=== PATIENT | female | born 2000 | race Caucasian/White ===

== ENCOUNTER 2024-04-30 15:34 | Outpatient (CLI) | payer OTHER ==
[2024-04-30 15:45] VITALS: BP 128/90
[2024-04-30 16:53] LABS: BASOPHILS % (AUTO) 0.4 %; EOSINOPHILS # (AUTO) 0.2 10^3/uL (0.0-0.7); EOSINOPHILS % (AUTO) 2.9 %; HCT - HEMATOCRIT 38.8 % (37.0-47.0); HGB - HEMOGLOBIN 12.9 g/dL (12.0-16.0); LYMPHOCYTES # (AUTO) 1.1 10^3/uL (1.5-3.5); LYMPHOCYTES % (AUTO) 13.5 %; MEAN CORPUSCULAR HEMOGLOBIN 27.6 pg (27.0-31.0); MEAN CORPUSCULAR HGB CONC 33.2 g/dL (32.0-36.0); MEAN CORPUSCULAR VOLUME 82.9 fL (81.0-99.0); MEAN PLATELET VOLUME 11.2 fL (7.9-10.8); MONOCYTES # (AUTO) 0.5 10^3/uL (0.0-1.0); MONOCYTES % (AUTO) 5.4 %; NEUTROPHILS # (AUTO) 6.4 10^3/uL (1.5-6.6); NEUTROPHILS % (AUTO) 77.1 %; PLT - PLATELET COUNT 172 10^3/uL (130-450); RED BLOOD COUNT 4.68 10^6/uL (4.20-5.40); RED CELL DISTRIBUTION WIDTH 12.1 % (12.0-15.0); WHITE BLOOD COUNT 8.3 x10^3/uL (4.8-10.8)
--- NOTE | 2024-04-30 17:08 | PROVIDER PROGRESS NOTE ---
- HPI Chief Complaint: Decreased movement Current : Vital Signs Temperature 98.2 F 04/30/24 15:43 Heart Rate 97 04/30/24 15:43 Respiratory Rate 16 04/30/24 15:43 Blood Pressure 128/90 H 04/30/24 15:43 - Procedures OB Procedure Performed: NST Diagnosis/Indication for NST: Decreased movement Service Date of procedure: 04/30/24 (Read 04/30/24) - Plan Plan: Patient is a 24-year-old G1, P0 at 31 weeks gestation presenting today for decreased movement. She gets care in [place] at [facility]. She said for the last several days she has had increasingly less movement, although when she was put on monitoring, she did feel baby kick and was surprised as she has not had one in a while. She is also complained of intermittent right upper quadrant pain, although this has been more frequent and longer lasting the last several days. This happened early in but then resolved. She did talk about this with her primary OB provider on Monday and they yaya labs, but she has not heard back from them. She denies headache, changes in vision. She says she gets tired when doing activities, but no shortness of breath. No relation to food. No constipation or diarrhea, nausea, vomiting. No dysuria. Says she has seen her mom and dad with gallbladder issues and having them removed and says she does not feel like the pain she saw them during these episodes. Physical Exam Constitutional: alert, no acute distress, well hydrated, well developed, well nourished, appropriate dress. Cardiovascular: Regular rate and rhythm. Respiratory: no respiratory distress. Abdomen: Gravid, nondistended. Mild right upper quadrant pain, no guarding or rebound. Back: No CVA tenderness Psych: affect and mood appropriate, normal interaction, good eye contact. FHT: 145 bpm baseline, moderate variability, accelerations present, no decelerations. Reactive NST [place]: Quiescent Labs: Creatinine: 0.6, AST/ALT: 10/8, platelets: 172, protein/creatinine ratio: 0.1 Assessment and plan 1. Right upper quadrant pain -Low concern for preeclampsia. Uncomfortable, but not acutely painful in the right upper quadrant. Labs not concerning for preeclampsia and blood pressure is not severe -Discussed right upper quadrant ultrasound and this is best after fasting for 8 hours. She declines staying for this as the pain is not that severe. -Should return if worsening pain. Can follow-up for outpatient right upper ultrasound if desired. No signs of acute cholecystitis that would warrant urgent intervention. 2. Decreased movement -Reactive NST -Discussed movement expectations 3. Elevated blood pressure -one BP of 128/90 followed by several in the 110s-120s/70s
[2024-04-30 17:13] LABS: ALBUMIN 3.5 g/dL (3.2-5.5); ALBUMIN/GLOBULIN RATIO 1.2 (1.0-2.2); BILIRUBIN,TOTAL 0.4 mg/dL (0.2-1.0); CALCIUM 9.3 mg/dL (8.5-10.3); CREATININE 0.6 mg/dL (0.6-1.3); POTASSIUM 3.7 mmol/L (3.5-4.5); TOTAL PROTEIN 6.5 g/dL (6.4-8.9)
[2024-04-30 17:30] LABS: CREATININE,URINE 178.8 mg/dL; PROTEIN/CREATININE RATIO,URINE 0.1 (<=0.2)
== END 2024-04-30 18:00 | disposition home or self-care (01) ==
LOC: WFO 15:34 → FBP 15:35 → WFO 18:00
PROVIDERS: ATTEND Obstetrics & Gynecology
DX: O36.8130 Decreased fetal movements, third trimester, not applicable or unspecified (principal); O99.891 Other specified diseases and conditions complicating pregnancy; R03.0 Elevated blood-pressure reading, without diagnosis of hypertension; R10.11 Right upper quadrant pain; Z3A.31 31 weeks gestation of pregnancy
CPT/HCPCS: 36415; 59025; 80053; 82570; 84156; 85025; 99215

== ENCOUNTER 2024-05-27 02:02 | Outpatient (CLI) | payer OTHER ==
[2024-05-27 02:45] VITALS: O2SAT 100
[2024-05-27 03:38] LABS: BASOPHILS % (AUTO) 0.3 %; EOSINOPHILS # (AUTO) 0.4 10^3/uL (0.0-0.7); EOSINOPHILS % (AUTO) 3.9 %; HGB - HEMOGLOBIN 11.5 g/dL (12.0-16.0); MEAN CORPUSCULAR HEMOGLOBIN 26.4 pg (27.0-31.0); MEAN CORPUSCULAR HGB CONC 31.9 g/dL (32.0-36.0); MEAN CORPUSCULAR VOLUME 82.6 fL (81.0-99.0); MEAN PLATELET VOLUME 12.2 fL (7.9-10.8); MONOCYTES # (AUTO) 0.7 10^3/uL (0.0-1.0); MONOCYTES % (AUTO) 7.4 %; NEUTROPHILS % (AUTO) 65.5 %; PLT - PLATELET COUNT 160 10^3/uL (130-450); RED BLOOD COUNT 4.36 10^6/uL (4.20-5.40); RED CELL DISTRIBUTION WIDTH 12.3 % (12.0-15.0); WHITE BLOOD COUNT 9.2 x10^3/uL (4.8-10.8)
[2024-05-27 03:46] LABS: CREATININE,URINE 45.1 mg/dL; PROTEIN/CREATININE RATIO,URINE 0.2 (<=0.2)
--- NOTE | 2024-05-27 03:50 | PROVIDER PROGRESS NOTE ---
- HPI Chief Complaint: Pain, non-labor Current : Vital Signs Temperature 98.1 F 05/27/24 02:25 Heart Rate 76 05/27/24 02:25 Respiratory Rate 20 05/27/24 02:25 Blood Pressure 139/90 H 05/27/24 02:25 O2 Saturation 100 05/27/24 02:25 Temperature 98.1 F 05/27/24 02:25 Heart Rate 76 05/27/24 02:25 Respiratory Rate 20 05/27/24 02:25 Blood Pressure 139/90 H 05/27/24 02:25 O2 Saturation 100 05/27/24 02:25 If not protocol: Oxygen Flow, liters/minute - Procedures OB Procedure Performed: NST NST Procedure: NST Procedure Start Time 15:38 Stop Time 16:18 Service Date of procedure: 05/27/24 (Read 05/27/24) - Plan Plan: HPI: Patient is a 24-year-old G1, P0 at 36 weeks 2 days gestation presenting to triage for abdominal pain with movement. She has good movement, no leaking, no vaginal bleeding. She denies headache, changes in vision. She says for 24 hours, she has had significant, 8/10 stabbing pain in her upper belly that only happens with movement. She says this is most prominent in the morning. Pain 0/10 without movement. No fever, chills, nausea, vomiting. Baby does calm down if her partner rests hand on her abdomen. Otherwise she cannot anything to decrease the pain. Has tried warm baths, but this makes fetus more active. No history of elevated blood pressures, but mildly elevated today. Had triage visit last month with BP 120s/90s then normal Past medical history Ulcerative proctitis Physical Exam Constitutional: alert, no acute distress, well hydrated, well developed, well nourished, appropriate dress. Cardiovascular: Regular rate and rhythm. Respiratory: no respiratory distress. Abdomen: Gravid, nondistended, nontender, no guarding. Psych: affect and mood appropriate, normal interaction, good eye contact. FHT: 130 beats per baseline, moderate variability, accelerations present, no decelerations. Reactive NST [place]: Quiescent Labs: Stable 160, AST/ALT 11/11, protein creatinine ratio 0.2. Assessment and plan Abdominal pain -Normal exam today. Appears only related to movement and no concerning findings. -Discussed pain management techniques. Elevated blood pressures -Multiple BPs in the 140s/90s. -Labs not concerning for preeclampsia. -Discussed possible gestational hypertension. Should discuss with primary OB as this could change delivery timing.
[2024-05-27 03:54] LABS: ALBUMIN 3.4 g/dL (3.2-5.5); ALBUMIN/GLOBULIN RATIO 1.1 (1.0-2.2); BILIRUBIN,TOTAL 0.3 mg/dL (0.2-1.0); CALCIUM 9.1 mg/dL (8.5-10.3); CREATININE 0.7 mg/dL (0.6-1.3); POTASSIUM 3.9 mmol/L (3.5-4.5); TOTAL PROTEIN 6.4 g/dL (6.4-8.9)
[2024-05-27 04:49] VITALS: BP 132/85
== END 2024-05-27 04:15 | disposition home or self-care (01) ==
LOC: WFO 02:02 → FBP 02:04 → WFO 04:15
PROVIDERS: ATTEND Obstetrics & Gynecology
DX: O99.891 Other specified diseases and conditions complicating pregnancy (principal); R10.10 Upper abdominal pain, unspecified
CPT/HCPCS: 36415; 59025; 80053; 82570; 84156; 85025; 99215

== ENCOUNTER 2024-06-06 22:45 | Inpatient (IN) | payer OTHER ==
[2024-06-06 23:32] LABS: BASOPHILS % (AUTO) 0.5 %; EOSINOPHILS # (AUTO) 0.3 10^3/uL (0.0-0.7); EOSINOPHILS % (AUTO) 3.3 %; HCT - HEMATOCRIT 34.9 % (37.0-47.0); HGB - HEMOGLOBIN 11.5 g/dL (12.0-16.0); LYMPHOCYTES # (AUTO) 1.6 10^3/uL (1.5-3.5); MEAN CORPUSCULAR HEMOGLOBIN 26.7 pg (27.0-31.0); MEAN PLATELET VOLUME 12.3 fL (7.9-10.8); MONOCYTES # (AUTO) 0.6 10^3/uL (0.0-1.0); MONOCYTES % (AUTO) 7.1 %; NEUTROPHILS # (AUTO) 6.3 10^3/uL (1.5-6.6); NEUTROPHILS % (AUTO) 70.5 %; PLT - PLATELET COUNT 151 10^3/uL (130-450); RED BLOOD COUNT 4.31 10^6/uL (4.20-5.40); RED CELL DISTRIBUTION WIDTH 12.3 % (12.0-15.0); WHITE BLOOD COUNT 8.9 x10^3/uL (4.8-10.8)
[2024-06-06 23:50] LABS: ALBUMIN 3.2 g/dL (3.2-5.5); BILIRUBIN,TOTAL 0.3 mg/dL (0.2-1.0); CALCIUM 9.4 mg/dL (8.5-10.3); CREATININE 0.7 mg/dL (0.6-1.3); POTASSIUM 4.1 mmol/L (3.5-4.5); TOTAL PROTEIN 6.3 g/dL (6.4-8.9)
--- NOTE | 2024-06-07 01:30 | HISTORY & PHYSICAL EXAMINATION ---
Admit History - Other Maternal History Other Maternal History: HPI: Mihir Sharma is a 24 yo at 37w5d by 16wk US who is admitted with preeclampsia without severe features for IOL. Mihir presented to triage with elevated blood pressures at home and pr:cr .37 on outside labs collected on 06/06. She has received care at [facility] in [place]. She reports several mild range BPs over the last month and had been monitoring her BPs twice daily at home over the last week with BPs ranging from 132/94- 151/94. She was seen in triage here on 05/27 also with mild range BP. She reports mild EM with vision changes earlier in the evening, have since resolved. Reports vision changes as "like someone had shined a flashlight in her eye". Denies abdominal pain, ctx, lof, vb. + FM. Denies CP, SOB. Reports increase in LE swelling usually resolves with elevated her feet but not today. She does not have a specific plan. Does desire delayed cord clamping if possible and epidural for pain management. course: - She has received care at [facility] in [place]. - Reports uncomplicated care other than recently elevated BPs. - She was unsure of her BRIGIDO, reports being told multiple dates. record reviewed. Approximate LMP at her first visit was 09/22/23 with an BRIGIDO of 06/28/24. This would make her 37w0d today. First US performed on 01/11, measuring 16w4d, BRIGIDO by US 06/23/24. This BRIGIDO would make her 37w5d today. labs: - baseline pr:cr 0.11 on 02/14 - urine culture 04/26 neg - urine culture 12/20 mixed taylor - B+, antibody neg - Rubella immune - early A1C 5.0 - NIPT neg - RPR NR 12/20 - GC/CT neg/neg - HBsAg neg - Anti-HCV neg - HIV NR - TSH 2.04 - GBS collected on 06/05, pending - PAP 12/20/23 ASCUS, HPV neg - Glucola - unable to tolerate, was waiting to do Fresh test. - Anatomy US reported to be normal, report not available Medical Hx: - Ulcerative proctitis - has not been a problem during . Last saw GI doctor about 1 year ago with colonoscopy, told them she was trying for at that time. Was told that vaginal delivery should be OK. - Anxiety/depression - no meds currently. Has used trazadone and buproprion in the past to help with sleep. 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 Was not tracking periods. - Ho chlamydia in 2019. Denies h/o HSV in herself/partner. Social Hx: No current alcohol/tobacco/drug use. Family history: non-contributory Allergies - vinegar - "lip swelling and throat closes up" Meds: PNV, baby aspirin PE: - See vitals below Gen: NAD Chest: non labored respirations Abd: gravid, non tender, EFW 2800-3000g Ext: 2+ edema SVE: 1/50/-2, moderate, mid position Bedside US: cephalic presentation confirmed monitoring: FHTs: 130 bpm baseline, + accel, - decel, mod variability [place]: 2-6 min, she does not feel them Labs: CBC, CMP reviewed. A/P: 24 yo at 37w5d with: - Preeclampsia without severe features - GBS pending - Rh positive - Rubella immune - Ulcerative proctitis, was told no contraindication to prior to - Anxiety/depression, not on medication - We discussed elevated blood pressures and pr:cr ratio consistent with preeclampsia with recommendation for IOL at 37wks. She does agree to proceed with IOL, consents were reviewed and signed. Currently asymptomatic, will monitor closely for symptoms and severe range BPs. Single initial severe BP on presentation, remaining BPs have been normal to mild range. We did discuss possibility of magnesium sulfate for seizure prophylaxis in the setting of severe features and possible treatment with antihypertensives. Discussed may need extended monitoring in the setting of difficult to control blood pressures. - Discussed options for IOL. Would like to avoid cervical ripening balloon if possible. Plan to proceed with misoprostol 25mcg q 4 hrs, prefers vaginal route. Discussed possible augmentation with pitocin/AROM depending on labor progress. - GBS pending, RN's will call tomorrow to check on status of result. Given she is term with no h/o GBS bacteruria, GBS prophylaxis not indicated. Discussed with Jovanni and she is OK with non treatment at this time. - Pain management per patient request Sandy Herzog MD - HPI Current EDU 06/22/24 Gestation 37 Weeks and 5 Days 1 Para 0 Vital Signs Temperature 98.4 F 06/06/24 22:52 Heart Rate 83 06/06/24 22:52 Respiratory Rate 16 06/06/24 22:52 Blood Pressure 163/100 H 06/06/24 22:52 Temperature 98.4 F 06/06/24 22:52 Heart Rate 83 06/06/24 22:52 Respiratory Rate 16 06/06/24 22:52 Blood Pressure 163/100 H 06/06/24 22:52 O2 Saturation If not protocol: Oxygen Flow, liters/minute - NST Procedure NST Procedure Start Date 06/06/24 Start Time 22:54 Stop Time 23:34 Vibroacoustic Stimulation Used No Patient States Movement Yes Meds/Allgy - Allergies Allergies/Adverse Reactions: Allergies Allergy/AdvReac Type Severity Reaction Status Date / Time cider vinegar AdvReac Hives Verified 05/27/24 04:50 Physical - Abdominal Exam Vital Signs: Temp Pulse Resp BP Pulse Ox O2 Flow Rate 98.4 F 83 16 163/100 H 06/06/24 22:52 06/06/24 22:52 06/06/24 22:52 06/06/24 22:52 Plan for Labor - Plan For Labor I expect patient to be DC'd or transferred within 96 hours.: Yes
--- NOTE | 2024-06-07 02:18 | HISTORY & PHYSICAL EXAMINATION ---
Admit History - Other Maternal History Other Maternal History: HPI: * is a * G*P* at *weeks *days presenting with * course: *Copy pregnacy flowsheet* PMHx* PSHx * OB Hx * Social Hx * Fam Hx* Allergies * Meds: PE: * SVE: * Bedside US * NST: * Labs: * A/P: * is a * G*P* at * who presents for *: - * - * - GBS * - Plan for *. IOL consent reviewed and signed *. - Pain management per patient request *. - * - HPI Current [facility] 06/22/24 Gestation 37 Weeks and 5 Days 1 Para 0 Vital Signs Temperature 98.4 F 06/06/24 22:52 Heart Rate 83 06/06/24 22:52 Respiratory Rate 16 06/06/24 22:52 Blood Pressure 163/100 H 06/06/24 22:52 Temperature 98.4 F 06/06/24 22:52 Heart Rate 83 06/06/24 22:52 Respiratory Rate 16 06/06/24 22:52 Blood Pressure 163/100 H 06/06/24 22:52 O2 Saturation If not protocol: Oxygen Flow, liters/minute - NST Procedure NST Procedure Start Date 06/06/24 Start Time 22:54 Stop Time 23:34 Vibroacoustic Stimulation Used No Patient States Movement Yes Meds/Allgy - Allergies Allergies/Adverse Reactions: Allergies Allergy/AdvReac Type Severity Reaction Status Date / Time cider vinegar AdvReac Hives Verified 05/27/24 04:50 Physical - Abdominal Exam Vital Signs: Temp Pulse Resp BP Pulse Ox O2 Flow Rate 98.4 F 83 16 163/100 H 06/06/24 22:52 06/06/24 22:52 06/06/24 22:52 06/06/24 22:52
[2024-06-07] MEDS ORDERED: ONDANSETRON 4 MG/2 ML VIAL IVP PRN ×3 (02:31→19:43)
[2024-06-07] MEDS ORDERED: miSOPROStoL 200 MCG TABLET BC PRN ×2 (02:31)
[2024-06-07] MEDS ORDERED: diphenhydrAMINE INJ 50 MG/ML VIAL IVP PRN ×2 (02:31→19:43)
[2024-06-07] MEDS ORDERED: ACETAMINOPHEN 500 MG TABLET PO PRN (02:31)
[2024-06-07] MEDS ORDERED: CALCIUM CARBONATE CHEW 500 MG TABLET PO PRN ×2 (02:31)
[2024-06-07] MEDS ORDERED: ONDANSETRON ODT 4 MG TABLET PO PRN ×2 (02:31)
[2024-06-07] MEDS ORDERED: TRANEXAMIC ACID IN NACL 1,000 MG/100 ML BAG IV PRN (02:31)
[2024-06-07] MEDS ORDERED: OXYTOCIN 10 UNIT/ML VIAL IM PRN ×2 (02:31)
[2024-06-07] MEDS ORDERED: LACTATED RINGERS 1,000 ML IV PRN (02:31)
[2024-06-07] MEDS ORDERED: miSOPROStoL 200 MCG TABLET PR PRN ×2 (02:31)
[2024-06-07] MEDS ORDERED: TERBUTALINE 1 MG/ML VIAL SUBQ PRN ×2 (02:31)
[2024-06-07] MEDS ORDERED: NIFEdipine 10 MG CAPSULE PO PRN ×2 (02:31)
[2024-06-07] MEDS ORDERED: METHYLERGONOVINE 0.2 MG/ML VIAL IM PRN (02:31)
[2024-06-07] MEDS ORDERED: SODIUM CHLORIDE FLUSH 0.9% 10 ML SYRINGE IVP PRN ×2 (02:31)
[2024-06-07] MEDS ORDERED: CARBOPROST TROMETHAMINE 250 MCG/ML VIAL IM PRN ×2 (02:31)
[2024-06-07] MEDS ORDERED: AMPICILLIN 2 GM in SODIUM CHLORIDE 0.9% MINIBAG 100 ML IV ONE (02:31)
[2024-06-07] MEDS ORDERED: OXYTOCIN/SODIUM CHLORIDE 500 ML IV PRN (02:31)
[2024-06-07] MEDS ORDERED: LABETALOL 20 MG/4 ML SYRINGE IVP PRN ×6 (02:31)
[2024-06-07] MEDS ORDERED: fentaNYL 100 MCG/2 ML VIAL IVP PRN ×2 (02:31)
[2024-06-07] MEDS ORDERED: hydrALAZINE INJ 20 MG/ML VIAL IVP PRN ×4 (02:31)
[2024-06-07] MEDS ORDERED: lidocaine 1% 20 ML MDV ID PRN ×2 (02:31)
[2024-06-07] MEDS ORDERED: SODIUM CHLORIDE FLUSH 0.9% 10 ML SYRINGE IVP SCH ×2 (03:00)
[2024-06-07] MEDS: miSOPROStoL 100 MCG TABLET VG SCH (03:50)
[2024-06-07] MEDS ORDERED: AMPICILLIN 1 GM in SODIUM CHLORIDE 0.9% MINIBAG 100 ML IV SCH (06:00)
--- NOTE | 2024-06-07 15:38 | PHARMACY PROGRESS NOTE ---
- Best Possible Medication History Admit Date and Time: 06/07/24 0231 Processed by: Pharmacy Medications reviewed in ED?: No Medication History completed: Yes Patient Interview: Pt unable to participate Secondary Source(s): Physician records, Insurance records As the person ultimately responsible for medication therapy, providers are able to order a medication from an existing home medication list in [facility] via the "Reconcile Routine" prior to Confirmation of that medication by operations support professionals. Such practice is discouraged except when the physician, in their clinical judgment, deems that a medical need exists for a medication without regard to previous use.
[2024-06-07] MEDS: LACTATED RINGERS 1,000 ML IV PRN (18:01)
[2024-06-07 19:15] LABS: BASOPHILS % (AUTO) 0.3 %; EOSINOPHILS # (AUTO) 0.2 10^3/uL (0.0-0.7); EOSINOPHILS % (AUTO) 1.9 %; HCT - HEMATOCRIT 39.3 % (37.0-47.0); HGB - HEMOGLOBIN 12.5 g/dL (12.0-16.0); LYMPHOCYTES # (AUTO) 1.3 10^3/uL (1.5-3.5); LYMPHOCYTES % (AUTO) 10.8 %; MEAN CORPUSCULAR HEMOGLOBIN 25.7 pg (27.0-31.0); MEAN CORPUSCULAR HGB CONC 31.8 g/dL (32.0-36.0); MEAN CORPUSCULAR VOLUME 80.9 fL (81.0-99.0); MEAN PLATELET VOLUME 12.1 fL (7.9-10.8); MONOCYTES # (AUTO) 0.7 10^3/uL (0.0-1.0); MONOCYTES % (AUTO) 5.6 %; NEUTROPHILS # (AUTO) 9.6 10^3/uL (1.5-6.6); NEUTROPHILS % (AUTO) 80.9 %; PLT - PLATELET COUNT 166 10^3/uL (130-450); RED BLOOD COUNT 4.86 10^6/uL (4.20-5.40); RED CELL DISTRIBUTION WIDTH 12.5 % (12.0-15.0); WHITE BLOOD COUNT 11.9 x10^3/uL (4.8-10.8)
[2024-06-07 19:30] LABS: URIC ACID 5.3 mg/dL (2.3-6.6)
[2024-06-07] MEDS ORDERED: METOCLOPRAMIDE 10 MG/2 ML VIAL IVP PRN (19:43)
[2024-06-07] MEDS ORDERED: NALBUPHINE 10 MG/ML AMP IVP PRN (19:43)
[2024-06-07] MEDS ORDERED: NALOXONE 0.4 MG/ML VIAL IVP PRN (19:43)
[2024-06-07] MEDS ORDERED: ROPIVACAINE 0.2% 200 MG/100 ML BAG EP PRN (19:43)
[2024-06-07] MEDS ORDERED: ePHEDrine 50 MG/ML VIAL IVP PRN (19:43)
--- NOTE | 2024-06-07 19:43 | ANESTHESIA ---
Pre-Anesthesia VS, & Labs - Diagnosis labor pain - Procedure labor epidural Vital Signs: Temp Pulse Resp BP Pulse Ox O2 Flow Rate 36.7 C 83 16 138/84 H 06/07/24 04:03 06/07/24 04:03 06/07/24 04:03 06/07/24 04:03 Height: 5 ft 9 in Weight (kg): 104.78 kg Body Mass Index: 34.1 BMI Classification: Obese - NPO Other - Is Patient ?: Yes - Lab Results Current Lab Results: Laboratory Tests 06/07/24 19:11: Lactate Dehydrogenase 156 06/07/24 19:11: Uric Acid 5.3 06/07/24 19:11: WBC 11.9 H, RBC 4.86, Hgb 12.5, Hct 39.3, MCV 80.9 L, MCH 25.7 L , MCHC 31.8 L, RDW 12.5, Plt Count 166, MPV 12.1 H, Neut # (Auto) 9.6 H, Lymph # (Auto) 1.3 L, [place] # (Auto) 0.7, Eos # (Auto) 0.2, Baso # (Auto) 0.0, Absolute Nucleated RBC 0.00, Nucleated RBC % 0.0 06/07/24 07:30: Blood Type Recheck B POSITIVE 06/07/24 03:15: Blood Type B POSITIVE, Antibody Screen NEGATIVE 06/06/24 23:27: Sodium 134 L, Potassium 4.1, Chloride 104, Carbon Dioxide 23, Anion Gap 7.0, BUN 10, Creatinine 0.7, Estimated GFR (MDRD) 102, Glucose 82, Calcium 9.4, Total Bilirubin 0.3, AST 10, ALT 9 L, Alkaline Phosphatase 112, Total Protein 6.3 L, Albumin 3.2, Globulin 3.1, Albumin/Globulin Ratio 1.0 06/06/24 23:27: WBC 8.9, RBC 4.31, Hgb 11.5 L, Hct 34.9 L, MCV 81.0, MCH 26.7 L, MCHC 33.0, RDW 12.3, Plt Count 151, MPV 12.3 H, Neut # (Auto) 6.3, Lymph # (Auto) 1.6, [place] # (Auto) 0.6, Eos # (Auto) 0.3, Baso # (Auto) 0.0, Absolute Nucleated RBC 0.00, Nucleated RBC % 0.0 Fish Bones: 06/07/24 19:11 06/06/24 23:27 Home Medications and Allergies Home Medications: Ambulatory Orders Aspirin [Aspirin EC] 81 mg PO DAILY 06/07/24 No122/Iron/Folic Acid [ Multi Tablet] 1 each PO DAILY 06/07/24 Active Medications Acetaminophen (Acetaminophen 500 Mg Tablet) 1,000 mg PO Q8HR PRN PRN Reason: Mild Pain or Fever>38C(100.4F) Calcium Carbonate/Glycine (Calcium Carbonate Chew 500 Mg Tablet) 1,000 mg PO Q6HR PRN PRN Reason: Heartburn Carboprost Tromethamine (Carboprost Tromethamine 250 Mcg/Ml Vial) 250 mcg IM .ONCE PRN PRN Reason: Hemorrhage Diphenhydramine HCl (Diphenhydramine Inj 50 Mg/Ml Vial) 25 mg IVP Q6H PRN PRN Reason: Allergy Symptoms Fentanyl (Fentanyl 100 Mcg/2 Ml Vial) 50 mcg IVP Q1H PRN PRN Reason: Severe Pain (score 7-10) Hydralazine HCl (Hydralazine Inj 20 Mg/Ml Vial) 5 - 10 mg IVP Q20M PRN; Protocol PRN Reason: SBP> or= 160 OR DBP> or= 110 Hydralazine HCl (Hydralazine Inj 20 Mg/Ml Vial) 10 mg IVP .ONCE PRN; Protocol PRN Reason: SBP> or= 160 OR DBP> or= 110 Lactated Ringer's (Lr) 500 mls @ 999 mls/hr IV PRN PRN PRN Reason: Abdominal Pain Last Infusion: 06/07/24 18:20 Dose: 0 mls/hr Oxytocin/Sodium Chloride (Pitocin/Sodium Chloride) 500 mls @ 999 mls/hr IV PRN PRN; Protocol PRN Reason: POST- HEMORR PREVENTION Tranexamic Acid (Tranexamic 1,000 Mg/100ml-Nacl) 1,000 mg in 100 mls @ 600 mls/hr IV Q30M PRN PRN Reason: EBL >1200mL and within 3hr Oxytocin/Sodium Chloride (Pitocin/Sodium Chloride) 500 mls @ 999 mls/hr IV PRN PRN; Protocol PRN Reason: POST- HEMORR PREVENTION Ampicillin Sodium 1 gm/ Sodium (Chloride) 100 mls @ 200 mls/hr IV Q4H [facility] Labetalol HCl (Labetalol 20 Mg/4 Ml Syringe) 20 - 80 mg IVP Q10M PRN; Protocol PRN Reason: SBP> or= 160 OR DBP> or= 110 Labetalol HCl (Labetalol 20 Mg/4 Ml Syringe) 20 mg IVP .ONCE PRN; Protocol PRN Reason: SBP> or= 160 OR DBP> or= 110 Lidocaine HCl (Lidocaine 1% 20 Ml Mdv) 20 ml ID .ONCE PRN PRN Reason: PERINEAL REPAIR Stop: 06/10/24 02:31 Methylergonovine Maleate (Methylergonovine 0.2 Mg/Ml Vial) 0.2 mg IM .ONCE PRN PRN Reason: Hemorrhage Misoprostol (Misoprostol 200 Mcg Tablet) 600 mcg BC .ONCE PRN PRN Reason: Hemorrhage Misoprostol (Misoprostol 200 Mcg Tablet) 800 mcg [place] .ONCE PRN PRN Reason: Hemorrhage Misoprostol (Misoprostol 100 Mcg Tablet) 25 mcg VG Q4H [facility] Stop: 06/07/24 23:01 Last Admin: 06/07/24 13:10 Dose: 25 mcg Nifedipine (Nifedipine 10 Mg Capsule) 10 - 20 mg PO Q20M PRN; Protocol PRN Reason: SBP> or= 160 OR DBP> or= 110 Ondansetron HCl (Ondansetron Odt 4 Mg Tablet) 4 mg PO Q4HR PRN PRN Reason: Nausea / Vomiting Ondansetron HCl (Ondansetron 4 Mg/2 Ml Vial) 4 mg IVP PRN PRN PRN Reason: Nausea / Vomiting Oxytocin (Oxytocin 10 Unit/Ml Vial) 10 unit IM .ONCE PRN PRN Reason: Step One if no IV access. Sodium Chloride (Sodium Chloride Flush 0.9% 10 Ml Syringe) 10 ml IVP PRN PRN PRN Reason: NEEDED PER PROVIDER ORDERS Sodium Chloride (Sodium Chloride Flush 0.9% 10 Ml Syringe) 10 ml IVP Q8H [facility] Terbutaline Sulfate (Terbutaline 1 Mg/Ml Vial) 0.25 mg SUBQ .ONCE PRN PRN Reason: Tachystole Aspirin [Aspirin EC] 81 mg PO DAILY 06/07/24 No122/Iron/Folic Acid [ Multi Tablet] 1 each PO DAILY 06/07/24 Allergies/Adverse Reactions: Allergies Allergy/AdvReac Type Severity Reaction Status Date / Time cidnatali nascimento AdvReac Hives Verified 05/27/24 04:50 Anes History & Medical History - Anesthetic History Anesthesia Complications: reports: No previous complications Family history of Anesthesia Complications: Denies Family history of Malignant Hyperthermia: Denies - Medical History Cardiovascular: reports: Hypertension (gestational) Pulmonary: reports: None Smoking Status: Former smoker Psychosocial: reports: No issues indicated History of Cancer?: No Exam General: Alert, Oriented x3, Cooperative Dental: WNL Mouth Openin Fingerbreadth Neck Mobility: Normal Mallampati classification: II Thyromental Distance: 4-6 cm Respiratory: Lungs clear Cardiovascular: Regular rate Plan Anesthesia Type: Epidural Consent for Procedure(s) Verified and Reviewed: Yes Code Status: Attempt Resuscitation ASA classification: 3-Severe systemic disease Is this case an emergency?: No
[2024-06-07 19:51] LABS: ALBUMIN 3.6 g/dL (3.2-5.5); ALBUMIN/GLOBULIN RATIO 1.1 (1.0-2.2); BILIRUBIN,TOTAL 0.3 mg/dL (0.2-1.0); CALCIUM 8.9 mg/dL (8.5-10.3); CREATININE 0.7 mg/dL (0.6-1.3); POTASSIUM 4.1 mmol/L (3.5-4.5); TOTAL PROTEIN 6.9 g/dL (6.4-8.9)
[2024-06-07] MEDS ORDERED: LIDOCAINE 2%-EPI 1:100000 20 ML MDV ONE (20:27)
--- NOTE | 2024-06-07 20:57 | PROVIDER PROGRESS NOTE ---
Subjective - Prog Note Date Prog Note Date: 06/07/24 Prog Note Time: 17:00 - Subjective Subjective: getting more uncomfortable. just got out of tub. would like a bit of a break without monitors. got text on [employer] portal that gbs was neg. She showed this to me and I confirmed negative. BPs none sever range. and really just flirting with 140/90. Objective - Vital Signs/Intake & Output Reviewed Vital Signs: Yes Vital Signs: baby's tracing reviewed. Category 1. Intake & Output: Intake & Output 06/04/24 06/05/24 06/06/24 06/07/24 23:59 23:59 23:59 23:59 Intake Total 700 Balance 700 - Lab Results Fish Bones: 06/07/24 19:11 06/07/24 19:11 Other Labs: Lab Results x24hrs 06/07/24 06/07/24 06/07/24 Range/Units 19:11 19:11 19:11 WBC 11.9 H (4.8-10.8) x10^3/uL RBC 4.86 (4.20-5.40) 10^6/uL Hgb 12.5 (12.0-16.0) g/dL Hct 39.3 (37.0-47.0) % MCV 80.9 L (81.0-99.0) fL MCH 25.7 L (27.0-31.0) pg MCHC 31.8 L (32.0-36.0) g/dL RDW 12.5 (12.0-15.0) % Plt Count 166 (130-450) 10^3/uL MPV 12.1 H (7.9-10.8) fL Neut # (Auto) 9.6 H (1.5-6.6) 10^3/uL Lymph # (Auto) 1.3 L (1.5-3.5) 10^3/uL [place] # (Auto) 0.7 (0.0-1.0) 10^3/uL Eos # (Auto) 0.2 (0.0-0.7) 10^3/uL Baso # (Auto) 0.0 (0.0-0.1) 10^3/uL Absolute Nucleated RBC 0.00 x10^3/uL Nucleated RBC % 0.0 /100WBC Sodium 134 L (135-145) mmol/L Potassium 4.1 (3.5-4.5) mmol/L Chloride 104 (101-111) mmol/L Carbon Dioxide 22 (21-32) mmol/L Anion Gap 8.0 (6-13) BUN 8 (6-20) mg/dL Creatinine 0.7 (0.6-1.3) mg/dL Estimated GFR (MDRD) 102 (>89) Glucose 88 (74-104) mg/dL Uric Acid 5.3 (2.3-6.6) mg/dL Calcium 8.9 (8.5-10.3) mg/dL Total Bilirubin 0.3 (0.2-1.0) mg/dL AST 12 (10-42) IU/L ALT 10 (10-60) IU/L Alkaline Phosphatase 131 H (42-121) IU/L Lactate Dehydrogenase 156 (140-271) IU/L Total Protein 6.9 (6.4-8.9) g/dL Albumin 3.6 (3.2-5.5) g/dL Globulin 3.3 (2.1-4.2) g/dL Albumin/Globulin Ratio 1.1 (1.0-2.2) Blood Type Blood Type Recheck Antibody Screen 06/07/24 06/07/24 06/06/24 Range/Units 07:30 03:15 23:27 WBC (4.8-10.8) x10^3/uL RBC (4.20-5.40) 10^6/uL Hgb (12.0-16.0) g/dL Hct (37.0-47.0) % MCV (81.0-99.0) fL MCH (27.0-31.0) pg MCHC (32.0-36.0) g/dL RDW (12.0-15.0) % Plt Count (130-450) 10^3/uL MPV (7.9-10.8) fL Neut # (Auto) (1.5-6.6) 10^3/uL Lymph # (Auto) (1.5-3.5) 10^3/uL [place] # (Auto) (0.0-1.0) 10^3/uL Eos # (Auto) (0.0-0.7) 10^3/uL Baso # (Auto) (0.0-0.1) 10^3/uL Absolute Nucleated RBC x10^3/uL Nucleated RBC % /100WBC Sodium 134 L (135-145) mmol/L Potassium 4.1 (3.5-4.5) mmol/L Chloride 104 (101-111) mmol/L Carbon Dioxide 23 (21-32) mmol/L Anion Gap 7.0 (6-13) BUN 10 (6-20) mg/dL Creatinine 0.7 (0.6-1.3) mg/dL Estimated GFR (MDRD) 102 (>89) Glucose 82 (74-104) mg/dL Uric Acid (2.3-6.6) mg/dL Calcium 9.4 (8.5-10.3) mg/dL Total Bilirubin 0.3 (0.2-1.0) mg/dL AST 10 (10-42) IU/L ALT 9 L (10-60) IU/L Alkaline Phosphatase 112 (42-121) IU/L Lactate Dehydrogenase (140-271) IU/L Total Protein 6.3 L (6.4-8.9) g/dL Albumin 3.2 (3.2-5.5) g/dL Globulin 3.1 (2.1-4.2) g/dL Albumin/Globulin Ratio 1.0 (1.0-2.2) Blood Type B POSITIVE Blood Type Recheck B POSITIVE Antibody Screen NEGATIVE 06/06/24 Range/Units 23:27 WBC 8.9 (4.8-10.8) x10^3/uL RBC 4.31 (4.20-5.40) 10^6/uL Hgb 11.5 L (12.0-16.0) g/dL Hct 34.9 L (37.0-47.0) % MCV 81.0 (81.0-99.0) fL MCH 26.7 L (27.0-31.0) pg MCHC 33.0 (32.0-36.0) g/dL RDW 12.3 (12.0-15.0) % Plt Count 151 (130-450) 10^3/uL MPV 12.3 H (7.9-10.8) fL Neut # (Auto) 6.3 (1.5-6.6) 10^3/uL Lymph # (Auto) 1.6 (1.5-3.5) 10^3/uL [place] # (Auto) 0.6 (0.0-1.0) 10^3/uL Eos # (Auto) 0.3 (0.0-0.7) 10^3/uL Baso # (Auto) 0.0 (0.0-0.1) 10^3/uL Absolute Nucleated RBC 0.00 x10^3/uL Nucleated RBC % 0.0 /100WBC Sodium (135-145) mmol/L Potassium (3.5-4.5) mmol/L Chloride (101-111) mmol/L Carbon Dioxide (21-32) mmol/L Anion Gap (6-13) BUN (6-20) mg/dL Creatinine (0.6-1.3) mg/dL Estimated GFR (MDRD) (>89) Glucose (74-104) mg/dL Uric Acid (2.3-6.6) mg/dL Calcium (8.5-10.3) mg/dL Total Bilirubin (0.2-1.0) mg/dL AST (10-42) IU/L ALT (10-60) IU/L Alkaline Phosphatase (42-121) IU/L Lactate Dehydrogenase (140-271) IU/L Total Protein (6.4-8.9) g/dL Albumin (3.2-5.5) g/dL Globulin (2.1-4.2) g/dL Albumin/Globulin Ratio (1.0-2.2) Blood Type Blood Type Recheck Antibody Screen Assessment/Plan - Problem List (1) Pre-eclampsia affecting , antepartum Impression: stable. no need for antihypertensive meds at time. not severe so no need for magnesium at this time. gbs neg. miso x 3. wants to wait a bit for next one as too uncomfortable. check at 5:30 and still 1.5 cm. will walk around a bit. really feels labor is kicking in.
--- NOTE | 2024-06-07 22:22 | PROVIDER PROGRESS NOTE ---
<Marnie Solis - Last Filed: 06/07/24 22:29> Labor Progress Note - Uterine Monitoring Uterine Monitoring Mode: positive: External toco Contraction Frequency (min/apart): 2-3.5 Contraction Intensity: positive: Moderate Uterine Resting Tone: positive: Soft - Monitoring Monitor Mode: positive: External ultrasound Heart Rate Baseline: 150 Heart Rate Variability: positive: Moderate (6-25 bmp) Accelerations: positive: Present, 15x15 Decelerations: positive: Late, Variable, Intermittent (<50% x20 min) Strip Review: positive: Category I, Category II - Vaginal Exam Dilation (in cm): 4.5 Effacement (%): 90 Station: 0 Cervical Position: Anterior - Labor Progress Note Labor Progress Note/Additional Text: S: Left side lying. Feeling very comfortable with the epidural. Tolerating positional changes, coping well, feels well informed. O: FHR baseline 150, moderate variability, + accels, intermittent (q 20 minutes) prolonged decels late vs variable, but resolution to baseline Contractions palpate moderately, soft resting tone. Vida not capturing uterine activity well despite multiple adjustments by RN team and myself SVE 4.5/90/0, anterior. Vertex. Afebrile. Spontaneous rupture of membrane during SVE. S/p 3 doses 50mcg BC misoprostol A: 24 yo at 37w5d by 16wk US who is admitted with preeclampsia without severe features for IOL FHR 150, Category I-II BP range primarily 130's/80's, pre-E labs repeated (unchanged. Significant cervical change from last exam GBS neg P: Continue active labor management Continuous monitoring. Monitor for escalations in distress. Maintain epidural for pain management. encourage rotations in bed on peanut ball Reviewed plan of care with oncall physician Anticipate . Patient understands my role as student nurse economic specialist and agrees to my participation in her care in my student role. YUE Velazquez, Student Nurse Online Marketing Manager <Iona Black - Last Filed: 06/08/24 18:41> Labor Progress Note - Labor Progress Note Labor Progress Note/Additional Text: I was present and examined patient with Marnie. I agree with the above.
[2024-06-07] MEDS ORDERED: METHYLERGONOVINE 0.2 MG/ML VIAL ONE (23:22)
[2024-06-07] MEDS ORDERED: CARBOPROST TROMETHAMINE 250 MCG/ML VIAL IM ONE (23:22)
[2024-06-08] MEDS: OXYTOCIN/SODIUM CHLORIDE 500 ML IV PRN (00:23)
--- NOTE | 2024-06-08 00:37 | DELIVERY NOTE ---
<Marnie Solis - Last Filed: 06/08/24 01:21> Delivery Note - Labor Labor: positive: Other (medical induction of labor- misoprostol) - Infant Delivery Method Delivery Method: positive: Spontaneous vaginal delivery - Presentation Presentation: positive: Vertex, OA - occiput anterior, SITA - left occiput anterior - Nuchal Cord Nuchal Cord: positive: Present - Anesthetic Anesthetic Type: - Amniotic Fluid Description Amniotic Fluid Description: positive: Clear - Laceration Laceration: positive: None - Delivery Outcome Delivery Outcome: positive: Livebirth - [place]: positive: Placed in direct skin contact with mother, Bulb syringe, Stimulated, Pioneer used, Warmer used sex: positive: Female - Cord Cord: positive: 3 vessels - Placenta Placenta: positive: Intact - Estimated Blood Loss Estimated Blood Loss (in cc): 200 - Post Delivery Events Post Delivery Events: positive: No post delivery events - Delivery Comments (Free Text/Narrative) Delivery Comments (Free Text/Narrative): This 24 -year-old, G 1 P 0 presented to L&D @ 37+5 weeks gestation by 16wk US and was admitted for medical induction of labor after diagnosis of preeclampsia WITHOUT severe features. Medical induction of labor followed. Her care was completed at [facility] in [place]. Reports uncomplicated care other than recently elevated BPs. Upon arrival, her Cervix was 1/50/-2, moderate, mid position and vertex by BSUS. Paredes score 5. GBS negative. MISOPROSTOL 50 mcg x3 doses administered. FHR pattern demonstrated 150's baseline in a category I-II prior to second stage. Her BP remained non-severe range and her serum labs have been unremarkable. Epidural placed upon maternal request. SROM occurred @ 2158. She then progressed to complete/complete and pushing began @ 2331. : Pediatrics present at delivery. Normal spontaneous vaginal delivery of a viable female infant on 06/08/2024 @ 0018. Nuchal x one, reduced. The was placed on maternal abdomen, stimulated. She was brought to the warmer for quick evaluation by pediatric team but was returned to Mother and placed skin to skin. Apgars 8@1 min, and 9@ 5 minutes. Pitocin administered via IV for hemostasis. The umbilical cord was doubly clamped and cut by delivering provider at 1 minute of life. 3VC. Cord blood was obtained. Fundal massage and gently cord traction applied for active management of the third stage, placenta delivered spontaneously and intact @ 0023 time. EBL 200. Placenta was WAS NOT sent to pathology. Thirty units of Pitocin were added to the IV fluid and allowed to run freely. Uterine massage was performed until uterus was deemed firm. Fourth stage: Uterine fundus firm and there is no excessive bleeding. The perineum, vagina and cervix were inspected and found to be intact. Family bonding well. Both mother and baby are in stable condition. Needle and sponge counts were correct. Patient verbally consented to my participation in her care and delivery in my role as a student nurse fisheries technical officer. YUE Velazquez, Student Nurse Volleyball Assistant Coach <Iona Black - Last Filed: 06/08/24 18:39> Delivery Note - Cervical Ripening Method Cervical Ripening Method: positive: Misoprostil - Episiotomy Type Episiotomy Type: positive: None - Placenta Placenta: positive: Spontaneous - Delivery Comments (Free Text/Narrative) Delivery Comments (Free Text/Narrative): I agree with above and was present with Marnie for Mihir's pushing, delivery and initial post period.
[2024-06-08] MEDS ORDERED: HYDROCORTISONE 1% CREAM 28 GM TUBE PR PRN (00:45)
[2024-06-08] MEDS ORDERED: WITCH HAZEL/GLYCERIN 1 PAD TOP PRN (00:45)
[2024-06-08] MEDS ORDERED: LACTATED RINGERS 1,000 ML IV SCH (01:00)
[2024-06-08] MEDS: IBUPROFEN 800 MG TABLET PO SCH (03:14)
[2024-06-08] MEDS: ACETAMINOPHEN 500 MG TABLET PO PRN (03:14)
[2024-06-08 06:16] LABS: RPR Non Reactive (Non Reactive)
--- NOTE | 2024-06-08 12:35 | PROVIDER PROGRESS NOTE ---
<Marnie Solis - Last Filed: 06/08/24 12:36> Subjective - Prog Note Date Prog Note Date: 06/08/24 Prog Note Time: 12:34 - Subjective Pt reports feeling: Improved Subjective: HPI: Patient reports she is doing well. Comfortable WITHOUT pain managment Lochia appropriate. Denies heavy bleeding. Ambulating. Tolerating oral intake. Diet: Regular. Voiding without difficulty. Passing flatus. Denies BM. Patient is bonding with baby in room Breast feeding going well. Denies feeling lightheaded, dizzy or excessively fatigued. Denies headache, change in vision, right upper quadrant pain. Objective - Vital Signs/Intake & Output Vital Signs: Vital Signs x48h Temp Pulse Resp BP Pulse Ox 06/08/24 10:00 36.8 C 83 16 126/81 H 97 06/08/24 05:19 103 H 141/94 H Intake & Output: Intake & Output 06/05/24 06/06/24 06/07/24 06/08/24 23:59 23:59 23:59 23:59 Intake Total 700 500 Output Total 1100 Balance 700 -600 - Objective General Appearance: positive: No acute distress Eyes Bilateral: positive: Normal inspection Respiratory: positive: No respiratory distress Cardiovascular: positive: Regular rate & rhythm, Other (1+ edema bilaterally to lower extremities) Abdomen: positive: Non-tender Skin: positive: Color nml Extremities: positive: Non-tender, Full ROM - Lab Results Fish Bones: 06/07/24 19:11 06/07/24 19:11 Other Labs: Lab Results x24hrs 06/07/24 06/07/24 06/07/24 Range/Units 19:11 19:11 19:11 WBC 11.9 H (4.8-10.8) x10^3/uL RBC 4.86 (4.20-5.40) 10^6/uL Hgb 12.5 (12.0-16.0) g/dL Hct 39.3 (37.0-47.0) % MCV 80.9 L (81.0-99.0) fL MCH 25.7 L (27.0-31.0) pg MCHC 31.8 L (32.0-36.0) g/dL RDW 12.5 (12.0-15.0) % Plt Count 166 (130-450) 10^3/uL MPV 12.1 H (7.9-10.8) fL Neut # (Auto) 9.6 H (1.5-6.6) 10^3/uL Lymph # (Auto) 1.3 L (1.5-3.5) 10^3/uL [place] # (Auto) 0.7 (0.0-1.0) 10^3/uL Eos # (Auto) 0.2 (0.0-0.7) 10^3/uL Baso # (Auto) 0.0 (0.0-0.1) 10^3/uL Absolute Nucleated RBC 0.00 x10^3/uL Nucleated RBC % 0.0 /100WBC Sodium 134 L (135-145) mmol/L Potassium 4.1 (3.5-4.5) mmol/L Chloride 104 (101-111) mmol/L Carbon Dioxide 22 (21-32) mmol/L Anion Gap 8.0 (6-13) BUN 8 (6-20) mg/dL Creatinine 0.7 (0.6-1.3) mg/dL Estimated GFR (MDRD) 102 (>89) Glucose 88 (74-104) mg/dL Uric Acid 5.3 (2.3-6.6) mg/dL Calcium 8.9 (8.5-10.3) mg/dL Total Bilirubin 0.3 (0.2-1.0) mg/dL AST 12 (10-42) IU/L ALT 10 (10-60) IU/L Alkaline Phosphatase 131 H (42-121) IU/L Lactate Dehydrogenase 156 (140-271) IU/L Total Protein 6.9 (6.4-8.9) g/dL Albumin 3.6 (3.2-5.5) g/dL Globulin 3.3 (2.1-4.2) g/dL Albumin/Globulin Ratio 1.1 (1.0-2.2) RPR (Non Reactive) VZV IgG Antibody (Immune >165) index 06/07/24 06/07/24 Range/Units 03:20 03:20 WBC (4.8-10.8) x10^3/uL RBC (4.20-5.40) 10^6/uL Hgb (12.0-16.0) g/dL Hct (37.0-47.0) % MCV (81.0-99.0) fL MCH (27.0-31.0) pg MCHC (32.0-36.0) g/dL RDW (12.0-15.0) % Plt Count (130-450) 10^3/uL MPV (7.9-10.8) fL Neut # (Auto) (1.5-6.6) 10^3/uL Lymph # (Auto) (1.5-3.5) 10^3/uL [place] # (Auto) (0.0-1.0) 10^3/uL Eos # (Auto) (0.0-0.7) 10^3/uL Baso # (Auto) (0.0-0.1) 10^3/uL Absolute Nucleated RBC x10^3/uL Nucleated RBC % /100WBC Sodium (135-145) mmol/L Potassium (3.5-4.5) mmol/L Chloride (101-111) mmol/L Carbon Dioxide (21-32) mmol/L Anion Gap (6-13) BUN (6-20) mg/dL Creatinine (0.6-1.3) mg/dL Estimated GFR (MDRD) (>89) Glucose (74-104) mg/dL Uric Acid (2.3-6.6) mg/dL Calcium (8.5-10.3) mg/dL Total Bilirubin (0.2-1.0) mg/dL AST (10-42) IU/L ALT (10-60) IU/L Alkaline Phosphatase (42-121) IU/L Lactate Dehydrogenase (140-271) IU/L Total Protein (6.4-8.9) g/dL Albumin (3.2-5.5) g/dL Globulin (2.1-4.2) g/dL Albumin/Globulin Ratio (1.0-2.2) RPR Non Reactive (Non Reactive) VZV IgG Antibody <135 L (Immune >165) index - Other Results/Comments Other Results/Comments: Most recent BP 126/81. Most recent labs (antepartum): PLT:166, Serum Creatinine: 0.7, AST:12, ALT:10 FF below umbilicus ABX Reporting Has patient been on IV antibiotics over the past 48 hours?: No Assessment/Plan - Problem List (1) Vaginal delivery Impression: 24 yo s/p vaginal delivery on 06/08/2024, viable female . intact perineum Routine - Anticipate discharge tomorrow (2) Exclusive by mother Impression: sheriffs detective support and encouragement (3) Pre-eclampsia affecting , antepartum Impression: Continue to monitor for changes to blood pressure and onset of severe features no labs indicated at this time, will reevaluate based on clinic changes <Iona Black - Last Filed: 06/08/24 18:31> Subjective - Subjective Subjective: agree with above. I have seen and examined patient. Objective - Vital Signs/Intake & Output Intake & Output: Intake & Output 06/05/24 06/06/24 06/07/24 06/08/24 23:59 23:59 23:59 23:59 Intake Total 700 500 Output Total 1100 Balance 700 -600 - Lab Results Fish Bones: 06/07/24 19:11 06/07/24 19:11 Other Labs: Lab Results x24hrs 06/07/24 06/07/24 06/07/24 Range/Units 19:11 19:11 19:11 WBC 11.9 H (4.8-10.8) x10^3/uL RBC 4.86 (4.20-5.40) 10^6/uL Hgb 12.5 (12.0-16.0) g/dL Hct 39.3 (37.0-47.0) % MCV 80.9 L (81.0-99.0) fL MCH 25.7 L (27.0-31.0) pg MCHC 31.8 L (32.0-36.0) g/dL RDW 12.5 (12.0-15.0) % Plt Count 166 (130-450) 10^3/uL MPV 12.1 H (7.9-10.8) fL Neut # (Auto) 9.6 H (1.5-6.6) 10^3/uL Lymph # (Auto) 1.3 L (1.5-3.5) 10^3/uL [place] # (Auto) 0.7 (0.0-1.0) 10^3/uL Eos # (Auto) 0.2 (0.0-0.7) 10^3/uL Baso # (Auto) 0.0 (0.0-0.1) 10^3/uL Absolute Nucleated RBC 0.00 x10^3/uL Nucleated RBC % 0.0 /100WBC Sodium 134 L (135-145) mmol/L Potassium 4.1 (3.5-4.5) mmol/L Chloride 104 (101-111) mmol/L Carbon Dioxide 22 (21-32) mmol/L Anion Gap 8.0 (6-13) BUN 8 (6-20) mg/dL Creatinine 0.7 (0.6-1.3) mg/dL Estimated GFR (MDRD) 102 (>89) Glucose 88 (74-104) mg/dL Uric Acid 5.3 (2.3-6.6) mg/dL Calcium 8.9 (8.5-10.3) mg/dL Total Bilirubin 0.3 (0.2-1.0) mg/dL AST 12 (10-42) IU/L ALT 10 (10-60) IU/L Alkaline Phosphatase 131 H (42-121) IU/L Lactate Dehydrogenase 156 (140-271) IU/L Total Protein 6.9 (6.4-8.9) g/dL Albumin 3.6 (3.2-5.5) g/dL Globulin 3.3 (2.1-4.2) g/dL Albumin/Globulin Ratio 1.1 (1.0-2.2) RPR (Non Reactive) VZV IgG Antibody (Immune >165) index 06/07/24 06/07/24 Range/Units 03:20 03:20 WBC (4.8-10.8) x10^3/uL RBC (4.20-5.40) 10^6/uL Hgb (12.0-16.0) g/dL Hct (37.0-47.0) % MCV (81.0-99.0) fL MCH (27.0-31.0) pg MCHC (32.0-36.0) g/dL RDW (12.0-15.0) % Plt Count (130-450) 10^3/uL MPV (7.9-10.8) fL Neut # (Auto) (1.5-6.6) 10^3/uL Lymph # (Auto) (1.5-3.5) 10^3/uL [place] # (Auto) (0.0-1.0) 10^3/uL Eos # (Auto) (0.0-0.7) 10^3/uL Baso # (Auto) (0.0-0.1) 10^3/uL Absolute Nucleated RBC x10^3/uL Nucleated RBC % /100WBC Sodium (135-145) mmol/L Potassium (3.5-4.5) mmol/L Chloride (101-111) mmol/L Carbon Dioxide (21-32) mmol/L Anion Gap (6-13) BUN (6-20) mg/dL Creatinine (0.6-1.3) mg/dL Estimated GFR (MDRD) (>89) Glucose (74-104) mg/dL Uric Acid (2.3-6.6) mg/dL Calcium (8.5-10.3) mg/dL Total Bilirubin (0.2-1.0) mg/dL AST (10-42) IU/L ALT (10-60) IU/L Alkaline Phosphatase (42-121) IU/L Lactate Dehydrogenase (140-271) IU/L Total Protein (6.4-8.9) g/dL Albumin (3.2-5.5) g/dL Globulin (2.1-4.2) g/dL Albumin/Globulin Ratio (1.0-2.2) RPR Non Reactive (Non Reactive) VZV IgG Antibody <135 L (Immune >165) index
[2024-06-09 05:00] VITALS: O2SAT 98
--- NOTE | 2024-06-09 11:53 | DISCHARGE SUMMARY ---
<Marnie Solis - Last Filed: 06/09/24 19:08> Discharge Summary Admit Date: 06/06/24 Discharge Date: 06/09/24 Discharging Provider: Dr. Iona Black Code Status: Attempt Resuscitation Condition at Discharge: Good Discharge Disposition: 01 Home, Self Care - HOSPITAL COURSE Hospital Course: Date of Admission: 06/06/2024 Date of Discharge: 06/09/2024 Diagnosis on admission: 1. Preeclampsia without severe features 2. 24 -year-old, G 1 P 0 presented to L&D @ 37+5 weeks gestation by 16wk US 3. GBS negative Diagnosis on Discharge 1. 24 year old 2. s/p . PPD #1 3. Intact perineum 4. exclusive . 5. Preeclampsia without severe features. 6. Normotensive. Brief History: Mihir presented to L&D @ 37+5 weeks gestation by 16wk US and was admitted for medical induction of labor after diagnosis of preeclampsia WITHOUT severe features. Medical induction of labor followed. Her care was completed at [facility] in [place]. course appears to have been unremarkable until the elevated BP that led to her admission and subsequent medical induction. Normal labor course with epidural anesthesia followed by of viable female on 06/08/2024, apgars 8 &9. EBL 200 ml. intact perineum. Blood pressures have been mostly 130's/80's, no hypertensive medication management administered. Pre-E labs on admission and on repeat were unremarkable. Denies any headaches, visual disturbances or RUQ pain. No increase to edema. She has been doing well in her course. She is ambulating and tolerating a regular diet. She is urinating without difficulty and her lochia is normal. Her pain is well controlled without narcotic management. She will be dis charged to home today on day 1 and encouraged to continue PRN IBU, tylenol and stool softeners. She would like to follow-up with [facility] in 1 week. She has been given precautions to call if she has any any new or worsening sx such as fevers, chills, abdominal pain, increasing bleeding, or foul smelling vaginal lochia. preeclamptic precautions reviewed in detail. YUE Velazquez, Student Nurse Compensation And Benefits Analyst - ALLERGIES Allergies/Adverse Reactions: Allergies Allergy/AdvReac Type Severity Reaction Status Date / Time karol nascimento AdvReac Hives Verified 05/27/24 04:50 - MEDICATIONS Home Medications: Ambulatory Orders Medication Instructions Recorded Confirmed Aspirin [Aspirin EC] 81 mg PO DAILY 06/07/24 06/07/24 No122/Iron/Folic Acid 1 each PO DAILY 06/07/24 06/07/24 [ Multi Tablet] - PHYSICAL EXAM AT DISCHARGE General Appearance: positive: No acute distress Respiratory: positive: No respiratory distress Peripheral Pulses: positive: 2+ Skin: positive: Color nml Neurologic/Psychiatric: positive: Oriented x3 - LABS Result Diagrams: 06/07/24 19:11 06/07/24 19:11 - QUALITY (Female Hip Fx Only) Was patient sent home on osteoporosis medication?: No - TIME SPENT Time Spent in Discharge (Minutes): 15 <Iona Black - Last Filed: 06/09/24 21:48> Discharge Summary - LABS Result Diagrams: 06/07/24 19:11 06/07/24 19:11 - FOLLOW UP Follow Up: patient seen today with Marnie. Agree with above. DJL patient was varicella not immune and does not she was vaccinated or that this was offered to her. will review at PP appt.
--- NOTE | 2024-06-09 11:55 | Discharge Plan ---
Discharge Plan Problem Reviewed?: Yes Disposition: Home, Self Care Condition: Good Diet: Regular Activity Restrictions: No Restrictions Shower Restrictions: No Driving Restrictions: No Weight Bearing: Full Weight Instruction Topics: Vaginal, Breastfeed How To, Breastfeed Holds, Nutrition , Preeclampsia No Smoking: If you smoke, Please STOP! Call for help. Follow-up with: Iona Black MD [Provider Admit Priv/Credential] -
[2024-06-09 15:36] VITALS: BP 126/82
--- NOTE | 2024-06-09 18:40 | Labor Flowsheet ---
Labor Flowsheet Datetime Report Generated by CPN: 06/09/2024 18:39 Datetime: 06/09/2024 15:27 VITAL SIGNS NBP Sys/Lor/Mean (mmHg): 126 : 82 : 91 Pulse: 82 LaborFlag: Labor Datetime: 06/09/2024 04:44 SpO2 (%): 98 Datetime: 06/08/2024 00:10 Monitor Interventions for FHR: Ultrasound Adjusted FHR Baseline Rate : 145 Accelerations: Prolonged Category: Category II Comments: poor surellience during maternal pushing efforts STAGE 2 Pushing: Coached on Pushing Pushing Position: Pushing with Contractions Pushing Progress: with Pushing Datetime: 06/08/2024 00:00 Stage 2 Comments: Zackery Bondsdell SHEET MET[employer] WORK FURNACE INSTALLER at bedside, report recd per Dr Black, on standby for del Datetime: 06/07/2024 23:50 ASSESSMENT A Monitor Mode: Telemetry Variability: Moderate 6-25 bpm Decelerations: Late; Prolonged Datetime: 06/07/2024 23:30 Monitor Interventions for UA: [place] Adjusted Actions for Decelerations: Side to Side; Sterile Vaginal Exam; Provider Notified Datetime: 06/07/2024 23:16 Patient Care Comments: closed knee with peanut ball Datetime: 06/07/2024 23:13 VAGINAL EXAM Dilatation (cm): 9.5 Effacement (%): 100 Station: 1 Datetime: 06/07/2024 22:30 UTERINE ACTIVITY Monitor Mode: Palpation Frequency (min): 2-5 Quality: Moderate Duration (sec): 40-80 Pattern: Normal: <= 5 Contractions in 10 Minutes Resting Tone (Palpate): Relaxed Datetime: 06/07/2024 21:58 Temperature (C): 36.9 Exam by: Marnie TURNER Membrane Status: Ruptured Membranes Rupture Method: Spontaneous Amniotic Fluid Color: Clear Amniotic Fluid Amount: Moderate Amniotic Fluid Odor: Normal Datetime: 06/07/2024 21:57 Patient Position/Activity: Right Lateral Datetime: 06/07/2024 20:53 Epidural Procedure Other: Pump Started Datetime: 06/07/2024 20:45 Epidural Procedure: Completed Datetime: 06/07/2024 20:31 PROCEDURE TIME OUT Procedure Verify: Correct Patient Identity; Correct Side and Site are Marked; Accurate Procedure Co nsent Form; Agreement on Procedure to be Done; Correct Patient Position; Relevant Images and Results are Properly Labeled and Displayed; Safety Precautions Based on Patient History or Medication Use ANESTHESIA Anesthesia Plans: Epidural Datetime: 06/07/2024 19:07 COMMUNICATION Communication: RN Reviewed Strip Communication Comments: Report given to Ajith Beyer RN. Patient care relinquished. Datetime: 06/07/2024 18:01 PATIENT CARE IV/Blood Work: IV Bolus Started Datetime: 06/07/2024 13:10 Vaginal Bleeding: None Cervix, Consistency: Moderate Cervix, Position: Midposition MEDICATIONS Cervical Ripening Agents: Cytotec @ Medication Comments: vaginally Datetime: 06/07/2024 08:50 Vaginal Exam Comments: Patient consent obtained prior to SVE Datetime: 06/07/2024 06:55 FHR Baseline Changes: No Baseline Change Oxygen Method: Room Air Datetime: 06/07/2024 06:21 Pain Coping: Sleeping Datetime: 06/07/2024 05:59 Stage of : Labor Respirations: 18 Datetime: 06/07/2024 05:26 Membranes Ruptured Date/Time: 06/07/2024 21:58 Datetime: 06/07/2024 04:06 PAIN Pain Scale: 2 Datetime: 06/07/2024 03:24 Temperature Route: Oral Datetime: 06/07/2024 02:26 Pain Presence: None/Denies Pain Location: Right Hip; Left Hip Pain Relief Measures: Comfort Measures MATERNAL ASSESSMENT Level of Consciousness: Alert DTR's/Clonus: DTRs 2+; No Clonus Headache: Denies Breath Sounds, Left: Clear and Equal Breath Sounds, Right: Clear and Equal Nausea/Vomiting: Denies RUQ Epigastric Pain: Denies I/O Interventions: Ice Chips Given
== END 2024-06-09 17:45 | disposition home or self-care (01) | DRG 807 ==
LOC: WFO 22:45 → FBP 22:48 → WFO 06-07 02:30 → FBP 06-07 02:31
PROVIDERS: ADMIT Obstetrics & Gynecology; ATTEND Obstetrics & Gynecology
PROC: 3E033VJ Introduction of Other Hormone into Peripheral Vein, Percutaneous Approach (ICD-10-PCS; 2024-06-07)
PROC: 3E0DXGC Introduction of Other Therapeutic Substance into Mouth and Pharynx, External Approach (ICD-10-PCS; 2024-06-07)
PROC: 10E0XZZ Delivery of Products of Conception, External Approach (ICD-10-PCS; principal; 2024-06-08)
DX: O14.04 Mild to moderate pre-eclampsia, complicating childbirth (principal); Z37.0 Single live birth; Z3A.37 37 weeks gestation of pregnancy; O69.81X0 Labor and delivery complicated by cord around neck, without compression, not applicable or unspecified
CPT/HCPCS: 36415; 59025; 59409; 80053; 83615; 84550; 85025; 86592; 86787; 86850; 86900; 86901; 99215